=== PATIENT | male | born 1960 | race African-American/Black ===

== ENCOUNTER 2018-11-03 14:31 | Inpatient (IN) | payer OTHER ==
[2018-11-03 17:35] VITALS: BMI 25.9
--- NOTE | 2018-11-03 20:20 | HP ---
CIWA Score Nausea/Vomitin-No Nausea/No Vomiting Muscle Tremors: 1-None Visible, but [place] Anxiety: 0-No Anxiety, at Ease Agitation: 0-Normal Activity Paroxysmal Sweats: No Perspiration Orientation: 3-Disoriented Date>2 days Tacttile Disturbances: 0-None Auditory Disturbances: 0-None Visual Disturbances: 0-None Headache: 0-None Present CIWA-Ar Total Score: 4 - Admission Criteria OASAS Guidelines: Admission for Medically Managed Detox: Requires at least one of the followin. CIWA greater than 12 2. Seizures within the past 24 hours 3. Delirium tremens within the past 24 hours 4. Hallucinations within the past 24 hours 5. Acute intervention needed for co occurring medical disorder 6. Acute intervention needed for co occurring psychiatric disorder 7. Severe withdrawal that cannot be handled at a lower level of care (continued vomiting, continued diarrhea, abnormal vital signs) requiring intravenous medication and/or fluids 8. Patient presents the following: Acute intervention needed for co-occurring med or psych disorder Admission Criteria Met: Admission criteria met Admission ROS [facility] Chief Complaint: SEEKING CONTINUATION OF DETOX TXMENT AFTER HOSPITAL DC Allergies/Adverse Reactions: Allergies Allergy/AdvReac Type Severity Reaction Status Date / Time Penicillins Allergy Severe Swelling Verified 11/03/18 17:04 History of Present Illness: 57 Y.O. MALE WITH ALCOHOLISM HERE FOR DETOX. CLIENT IS A TRANSFER FROM [facility] AFTER BEING TX'ED THERE THE PAST 2 DAYS FOR ANEMIA AND ELEVATED BLOOD PRESSURE. WHILE THERE HE WAS ALSO GIVEN LIBRIUM FOR ALCOHOL DETOX. HE WAS SENT TO [facility] BY [facility] AFTER PRESENTING THERE FOR DETOX WITH ELEVATED B/P AND NEEDED MEDICAL CLEARANCE. PER THE CLIENT HE HAD STOPPED DRINKING A COUPLE OF DAYS AGO PRIOR TO PRESENTING FOR TXMENT AT [facility]. HE PRESENTLY HAS MINIMAL TO NO WITHDRAWAL SX'S. NAD HE HAS BEEN ON LIBRIUM. LDM TODAY. REPORTS HX/O SEIZURE X 1 EPISODE 2 MONTHS AGO. ELEVATED B/P BUT ASYMPTOMATIC.. WILL ADMIT CLIENT TO DETOX OVERNIGHT TO COMPLETE HIS DETOX TAPER PENDING TRANSFER TO A REHAB CURRENTLY THERE ARE NO REHAB BEDS. REPORTS LONGEST CLEAN TIME 3 YEARS. RELAPSED 2 YEARS AGO. HOMELESS, SSI- DENIES LEGALS PMHX- HTN, ANEMIA, HX/O PROSTATE CA IN REMISSION, DM, ASTHMA PSYCH- DEPRESSION Exam Limitations: No Limitations - Ebola screening Have you traveled outside of the country in the last 21 days: No (N) Have you had contact with anyone from an Ebola affected area: No Do you have a fever: No - Review of Systems Constitutional: Chills, Loss of Appetite, Changes in sleep EENT: reports: Other (EYEGLASSES MISSING TEETH W/ TOP UPPERS) Respiratory: reports: Shortness of Breath (HX/O ASTHMA) Cardiac: reports: No Symptoms Reported GI: reports: Diarrhea, Poor Appetite, Poor Fluid Intake : reports: No Symptoms Reported Musculoskeletal: reports: No Symptoms Reported Integumentary: reports: Other (MULTIPLE ABRASION TO BOTHS JACKSON FROM PREVIOUS FALLS ALL SCABBED OVER) Endocrine: reports: Other (DM) Hematology: reports: Anemia (S/P TRANSFUSION W/ 2UNITS OF PRBC) Psychiatric: reports: Anxious, Depressed (DENIES SI/HI) Other Systems: Reviewed and Negative Patient History - Patient Medical History Hx Anemia: Yes Hx Asthma: Yes Hx Chronic Obstructive Pulmonary Disease (COPD): No Hx Cancer: Yes (HX/O PROSTATE CA NOW IN REMISSION) Hx Cardiac Disorders: Yes (DYSRYTHMIA) Hx Congestive Heart Failure: No Hx Hypertension: Yes Hx Hypercholesterolemia: No Hx Pacemaker: No HX Cerebrovascular Accident: No Hx Seizures: Yes (LAST1 MONTH AGO) Hx Dementia: No Hx Diabetes: Yes Hx Gastrointestinal Disorders: No Hx Liver Disease: No Hx Genitourinary Disorders: No Hx Sexually Transmitted Disorders: No Hx Renal Disease (ESRD): No Hx Thyroid Disease: No Hx Human Immunodeficiency Virus (HIV): No Hx Hepatitis C: Yes (TX'ED) Hx Depression: Yes Hx Suicide Attempt: No Hx Bipolar Disorder: No Hx Schizophrenia: No Other Medical History: DENIES - Patient Surgical History Past Surgical History: Yes Other Surgical History: PROSTECTOMY, URINARY PUMP Anesthesia Reaction: No - PPD History Previous Implant?: Yes Documented Results: Negative w/o proof Implanted On Prior [facility] Admission?: No PPD to be Administered?: Yes - Smoking Cessation Smoking history: Current every day smoker Have you smoked in the past 12 months: Yes Aproximately how many cigarettes per day: 10 Cigars Per Day: 0 Hx Chewing Tobacco Use: No Initiated information on smoking cessation: Yes 'Breaking Loose' booklet given: 11/03/18 - Substance & Tx. History Hx Alcohol Use: Yes Hx Substance Use: Yes Substance Use Type: Alcohol, Marijuana Hx Substance Use Treatment: Yes ([facility]) - Substances abused Alcohol Substance route: Oral Frequency: Daily Amount used: 2 six packs, Age of first use: 16 Date of last use: 10/30/18 Marijuana/Hashish Substance route: Smoking Frequency: 3-6 times per week Amount used: 2 JOINTS Age of first use: 16 Date of last use: 10/02/18 Family Disease History - Family Disease History Family Disease History: Other: Father (ALCOHOLISM) Admission Physical Exam S - Vital Signs Vital Signs: Vital Signs - 24 hr 11/03/18 16:53 Temperature 98.9 F Pulse Rate 104 H Respiratory 18 Rate Blood Pressure 177/101 H - Physical General Appearance: Yes: No Apparent Distress HEENTM: Yes: EOMI, Normocephalic, Normal Voice, SEDRICK, Pharynx Normal, Other ( TOP DENTURES EYEGLASSES) Respiratory: Yes: Chest Non-Tender, Lungs Clear, Normal Breath Sounds, No Respiratory Distress, No Accessory Muscle Use Neck: Yes: No masses,lesions,Nodules, Supple, Trachea in good position Breast: Yes: Breast Exam Deferred Cardiology: Yes: Regular Rhythm, Regular Rate, S1, S2 Abdominal: Yes: Non Tender, Soft, Surgical Scar Genitourinary: Yes: Other (SCROTOL PUMP) Back: Yes: Normal Inspection Musculoskeletal: Yes: full range of Motion, Gait Steady Extremities: Yes: Normal Capillary Refill, Normal Range of Motion, Non-Tender Neurological: Yes: Alert, Motor Strength 5/5 Integumentary: Yes: Dry, Warm, Other (ABRASIONS TO BLE SCABBED OVER DUE TO PREVIOUS FALLS) Lymphatic: Yes: Within Normal Limits - Diagnostic (1) Alcohol dependence with uncomplicated withdrawal Current Visit: Yes Status: Acute (2) Cannabis abuse Current Visit: Yes Status: Chronic (3) HTN (hypertension) Current Visit: Yes Status: Chronic (4) Diabetes Current Visit: Yes Status: Chronic Qualifiers: Diabetes mellitus type: type 2 (5) Asthma Current Visit: Yes Status: Chronic Qualifiers: Asthma severity: mild Asthma persistence: intermittent Asthma complication type: unspecified Qualified Code(s): J45.20 - Mild intermittent asthma, uncomplicated (6) Anemia Current Visit: Yes Status: Acute Qualifiers: Anemia type: iron deficiency (7) Substance induced mood disorder Current Visit: Yes Status: Suspected Cleared for Admission [facility] - Detox or Rehab [facility] Level of Care: Medically Managed Detox Regimen/Protocol: Librium Claeared for Rehab Admission: No Breathalyzer - Breathalyzer Breathalyzer: 0 Urine Drug Screen - Test Device Lot number: [id number] Expiration date: 08/13/20 - Control Is test valid?: Yes - Results Drug screen NEGATIVE: No Urine drug screen results: THC-Marijuana, BZO-Benzodiazepines Inpatient Rehab Admission - Rehab Decision to Admit Inpatient rehab admission?: No
[2018-11-03] MEDS ORDERED: P-EPHED 60MG/TRIPROLIDI 2.5MG TABLET PO PRN (20:32)
[2018-11-03] MEDS ORDERED: NICOTINE POLACRILEX 2 MG GUM BUC PRN (20:32)
[2018-11-03] MEDS ORDERED: hydrOXYzine PAMOATE 25 MG CAPSULE (FP) PO PRN (20:32)
[2018-11-03] MEDS ORDERED: MELATONIN 5 MG TABLETS PO PRN (20:32)
[2018-11-03] MEDS ORDERED: BISMUTH SUBSALICYLATE 524 MG/30 ML UD PO PRN (20:32)
[2018-11-03] MEDS ORDERED: IBUPROFEN 400 MG TABLET (FP) PO PRN (20:32)
[2018-11-03] MEDS ORDERED: MAGNESIUM CITRATE 300 ML BOTTLE PO PRN (20:32)
[2018-11-03] MEDS ORDERED: DICYCLOMINE HCL 10 MG CAPSULE PO PRN (20:32)
[2018-11-03] MEDS ORDERED: METHOCARBAMOL 500 MG TABLET PO PRN (20:32)
[2018-11-03] MEDS ORDERED: ONDANSETRON *ODT* 4 MG TABLET SL PRN (20:32)
[2018-11-03] MEDS ORDERED: MENTHOL/PHENOL 1 EACH UD MM PRN (20:32)
[2018-11-03] MEDS ORDERED: MAGNESIUM HYDROX 2400MG/30ML ORAL SUSPENSION 30 ML CUP PO PRN (20:32)
[2018-11-03] MEDS ORDERED: MAG HYDROX/AL HYDROX/SIMETH 30 ML UNIT-DOSE CUP PO PRN (20:32)
[2018-11-03] MEDS ORDERED: ACETAMINOPHEN 325 MG TABLET (FP) PO PRN ×2 (20:32)
[2018-11-03] MEDS ORDERED: guaiFENesin 200 MG/10 ML 10 ML UNIT-DOSE CUPS PO PRN (20:32)
[2018-11-03] MEDS ORDERED: ALBUTEROL SO4 8 GM HFA INHALER IH PRN (20:45)
[2018-11-03] MEDS ORDERED: cloNIDine HCL 0.1 MG TABLET PO ONE (20:48)
[2018-11-03] MEDS ORDERED: chlordiazePOXIDE HCL 10 MG CAPSULE PO SCH (21:00)
[2018-11-03] MEDS ORDERED: THIAMINE HCL 100 MG TABLET (FP) PO SCH (22:00)
[2018-11-04] MEDS ORDERED: chlordiazePOXIDE HCL 10 MG CAPSULE PO ONE (05:00)
[2018-11-04] MEDS ORDERED: metFORMIN HCL 500 MG TABLET (FP) PO SCH (07:00)
[2018-11-04 09:39] VITALS: PULSE 72; TEMP 98.3
[2018-11-04 09:40] VITALS: BP 166/89
[2018-11-04] MEDS ORDERED: PRENATAL VITAMINS W/ FOLIC ACID TABLET (FP) PO SCH (10:00)
[2018-11-04] MEDS ORDERED: ASPIRIN COATED 81 MG TABLET.EC PO SCH (10:00)
[2018-11-04] MEDS ORDERED: ENALAPRIL MALEATE 10 MG TABLET (FP) PO SCH (10:00)
[2018-11-04] MEDS ORDERED: NICOTINE 14 MG/24 HOURS TOPICAL PATCH TD SCH (10:00)
[2018-11-04] MEDS ORDERED: amLODIPine BESYLATE 10 MG TABLET (FP) PO SCH (10:00)
[2018-11-04] MEDS ORDERED: FERROUS SO4 325 MG TABLET (FP) PO SCH (10:00)
--- NOTE | 2018-11-04 11:41 | EKG ---
Test Reason : Blood Pressure : / mmHG Vent. Rate : 076 BPM Atrial Rate : 076 BPM P-R Int : 132 ms QRS Dur : 138 ms QT Int : 460 ms P-R-T Axes : 073 -02 015 degrees QTc Int : 517 ms SINUS RHYTHM WITH PREMATURE SUPRAVENTRICULAR COMPLEXES AND WITH OCCASIONAL PREMATURE VENTRICULAR COMPLEXES POSSIBLE LEFT ATRIAL ENLARGEMENT RIGHT BUNDLE BRANCH BLOCK ABNORMAL ECG WHEN COMPARED WITH ECG OF 03-NOV-2018 21:25, PREMATURE VENTRICULAR COMPLEXES ARE NOW PRESENT Confirmed by JODY CAMPA MD ([id number]) on 11/04/2018 11:41:05 AM Referred By: JENN Confirmed By:JODY CAMPA MD
--- NOTE | 2018-11-04 11:41 | EKG ---
Test Reason : Blood Pressure : / mmHG Vent. Rate : 088 BPM Atrial Rate : 088 BPM P-R Int : 128 ms QRS Dur : 142 ms QT Int : 440 ms P-R-T Axes : 073 002 013 degrees QTc Int : 532 ms SINUS RHYTHM WITH PREMATURE ATRIAL COMPLEXES RIGHT BUNDLE BRANCH BLOCK ABNORMAL ECG NO PREVIOUS ECGS AVAILABLE Confirmed by LOKESH COLVIN, JODY ([id number]) on 11/04/2018 11:41:29 AM Referred By: MELITON SCHUMACHER Confirmed By:JODY CAMPA MD
--- NOTE | 2018-11-04 12:20 | DS ---
[facility] Detox Discharge Summary Admission Date: 11/03/18 Discharge Date: 11/04/18 - History Present History: Alcohol Dependence Additional Comments: 57 years old male admitted on 11/03/18 for alcohol withdrawal induced bp elevation received amlodipine enalapril systolic subsided to 160-150 from 180-160 received metformin bgm reduced from 200 to 100 with dietary restriction patient presents less tremor mild headache suitable for alcohol rehab today Pertinent Past History: hypertension diabetes II - Physical Exam Results Vital Signs: Vital Signs Temperature 98.3 F 11/04/18 09:38 Pulse Rate 72 11/04/18 09:38 Respiratory Rate 18 11/04/18 09:38 Blood Pressure 166/89 11/04/18 09:39 O2 Sat by Pulse Oximetry (%) Pertinent Admission Physical Exam Findings: alcohol withdrawal sx Laboratory Last Values POC Glucometer 199 UNITS (80-120) 11/04/18 06:09 lab pending - Treatment Hospital Course: Detox Protocol Followed, Detoxed Safely, Responded well, Discharged Condition Good, Rehab Referral Accepted Patient has Accepted a Rehab Referral to: [facility] - Medication Discharge Medications: Ambulatory Orders Albuterol Sulfate [Proventil HFA Inhaler -] 1 - 2 inh PO PRN 11/03/18 Amlodipine Besylate 5 mg PO DAILY 11/03/18 Amlodipine Besylate 10 mg PO DAILY 11/03/18 Aspirin [Aspirin EC] 81 mg PO DAILY 11/03/18 Diltiazem HCl [Diltiazem ER] 120 mg PO DAILY 11/03/18 Docusate Sodium 100 mg PO TID 11/03/18 Enalapril Maleate [Vasotec] 20 mg PO DAILY 11/03/18 Ferrous Sulfate 325 mg PO DAILY 11/03/18 Metformin HCl [Glucophage] 500 mg PO BID 11/03/18 Sitagliptin Phosphate [Januvia] 100 mg PO DAILY 11/03/18 - Diagnosis (1) Asthma Current Visit: Yes Status: Chronic Qualifiers: Asthma severity: mild Asthma persistence: intermittent Asthma complication type: unspecified Qualified Code(s): J45.20 - Mild intermittent asthma, uncomplicated (2) Diabetes Current Visit: Yes Status: Chronic Qualifiers: Diabetes mellitus type: type 2 Diabetes mellitus complication status: with other specified complication (3) HTN (hypertension) Current Visit: Yes Status: Chronic Qualifiers: Hypertension type: essential hypertension Qualified Code(s): I10 - Essential (primary) hypertension (4) Substance induced mood disorder Current Visit: Yes Status: Suspected - AMA Did Patient Leave Against Medical Advice: No CIWA Score - CIWA Score Nausea/Vomitin-No Nausea/No Vomiting Muscle Tremors: None Anxiety: 0-No Anxiety, at Ease Agitation: 0-Normal Activity Paroxysmal Sweats: No Perspiration Orientation: 1-Uncertain about Date (date of the week) Tacttile Disturbances: 0-None Auditory Disturbances: 0-None Visual Disturbances: 0-None Headache: 1-Very Mild CIWA-Ar Total Score: 2
[2018-11-04 12:43] LABS: ALBUMIN 3.4 g/dl (3.4-5.0); BILIRUBIN,TOTAL 0.7 mg/dL (0.2-1); BLOOD UREA NITROGEN 16.3 mg/dL (7-18); CALCIUM 8.8 mg/dL (8.5-10.1); CREATININE 1.3 mg/dL (0.55-1.3); POTASSIUM 3.5 mmol/L (3.5-5.1); TOT PROT 7.6 g/dl (6.4-8.2)
[2018-11-04 13:23] LABS: EPI CELLS 0.6 /HPF (0-5/HPF); HYALINE CASTS 0 /lpf (0-8); URINE APPEARANCE CLEAR; URINE BACTERIA 2.7 /hpf (NEGATIVE); URINE BILIRUBIN NEGATIVE (NEGATIVE); URINE COLOR YELLOW; URINE GLUCOSE (UA) TRACE (NEGATIVE); URINE KETONE NEGATIVE (NEGATIVE); URINE LEUK ESTERASE NEGATIVE (NEGATIVE); URINE NITRITE NEGATIVE (NEGATIVE); URINE PROTEIN 3+ (NEGATIVE); URINE UROBILINOGEN 0.2 mg/dL (0.2-1.0); URINE WBC 0 /hpf (0-5)
[2018-11-04 13:23] LABS: HEMATOCRIT 29.5 % (35.4-49); HEMOGLOBIN 9.1 GM/dL (11.7-16.9); MCH 21.4 pg (25.7-33.7); MEAN CELL VOLUME 69.1 fl (80-96); MEAN PLT VOLUME 9.1 fl (7.5-11.1); PLATELET COUNT 123 K/MM3 (134-434); RBC 4.27 M/mm3 (4.00-5.60); RDW 25.5 % (11.9-15.9); WHITE BLOOD COUNT 8.1 K/mm3 (4.0-10.0)
--- NOTE | 2018-11-04 14:09 | CONSULT ---
[facility] Psychiatric Consult - Data Date of interview: 11/04/18 Admission source: [facility] Identifying data: Patient no longer on 3N. Unable to complete psychiatric consultation.
[2018-11-04 14:25] LABS: URINE RBC 0 /hpf (0-4)
[2018-11-06] MEDS ORDERED: chlordiazePOXIDE HCL 10 MG CAPSULE PO PRN
== END 2018-11-04 12:40 | disposition other institution (70) | DRG 775 ==
LOC: YASAS 14:31 → Y3N 21:03
PROVIDERS: ADMIT Surgery; ATTEND Surgery
PROC: HZ2ZZZZ Detoxification Services for Substance Abuse Treatment (ICD-10-PCS; principal; 2018-11-03)
DX: F10.230 Alcohol dependence with withdrawal, uncomplicated (principal); F12.10 Cannabis abuse, uncomplicated; F17.210 Nicotine dependence, cigarettes, uncomplicated; F19.24 Other psychoactive substance dependence with psychoactive substance-induced mood disorder; I10 Essential (primary) hypertension; J45.20 Mild intermittent asthma, uncomplicated; E11.9 Type 2 diabetes mellitus without complications; D50.9 Iron deficiency anemia, unspecified; Z85.46 Personal history of malignant neoplasm of prostate; I49.9 Cardiac arrhythmia, unspecified; Z86.69 Personal history of other diseases of the nervous system and sense organs; Z88.0 Allergy status to penicillin; Z79.84 Long term (current) use of oral hypoglycemic drugs; Z59.0 Homelessness
CPT/HCPCS: 36415; 80053; 81003; 82962; 85027; 86593; 93005; 93010; J0735

== ENCOUNTER 2018-11-04 12:39 | Inpatient (IN) | payer OTHER ==
--- NOTE | 2018-11-04 12:28 | HP ---
AMNA COLVIN Rehab Assess/Revision - Admission History Admitted to Rehab from: [facility] Date of Admission to Rehab: 11/04/18 - Findings Detox History & Physical reviewed: Yes Concur with findings: Yes Comments/Additional Findings: transferred from detox to rehab admission as per protocol Inpatient Rehab Admission - Rehab Decision to Admit Inpatient rehab admission?: Yes - Initial Determination Are CD services needed?: Yes Free of communicable disease: Yes Not in need of hospitalization: Yes - Rehab Admission Criteria Previous failed treatment: Yes Poor recovery environment: Yes Comorbidities: Yes Lacks judgement: No Patient is meeting Inpatient Rehab admission criteria:: Yes
[~2018-11-04 12:39] MED LIST: ACETAMINOPHEN 325 MG TABLET (FP) PO PRN; LOPERAMIDE HCL 2 MG CAPSULE PO PRN; MAG HYDROX/AL HYDROX/SIMETH 30 ML UNIT-DOSE CUP PO PRN; MAGNESIUM CITRATE 300 ML BOTTLE PO PRN; MAGNESIUM HYDROX 2400MG/30ML ORAL SUSPENSION 30 ML CUP PO PRN; MENTHOL/PHENOL 1 EACH UD MM PRN; NICOTINE POLACRILEX 2 MG GUM BUC PRN; P-EPHED 60MG/TRIPROLIDI 2.5MG TABLET PO PRN
[2018-11-04] MEDS: metFORMIN HCL 500 MG TABLET (FP) PO SCH (17:14)
[2018-11-04] MEDS: THIAMINE HCL 100 MG TABLET (FP) PO SCH (21:27)
[2018-11-04] MEDS: MELATONIN 5 MG TABLETS PO PRN (21:27)
[2018-11-05] MEDS: metFORMIN HCL 500 MG TABLET (FP) PO SCH ×2 (07:10→16:57)
[2018-11-05] MEDS ORDERED: PATIENT'S OWN MEDICATION (NON-FORMULARY) (Diltiazem Hcl [Diltiazem 24hr Er] 120 MG) PO SCH (10:00)
[2018-11-05] MEDS: ENALAPRIL MALEATE 10 MG TABLET (FP) PO SCH (10:23)
[2018-11-05] MEDS: NICOTINE 14 MG/24 HOURS TOPICAL PATCH TD SCH (10:23)
[2018-11-05] MEDS: amLODIPine BESYLATE 10 MG TABLET (FP) PO SCH (10:23)
[2018-11-05] MEDS: ASPIRIN COATED 81 MG TABLET.EC PO SCH (10:23)
[2018-11-05] MEDS: FERROUS SO4 325 MG TABLET (FP) PO SCH (10:23)
[2018-11-05] MEDS: PRENATAL VITAMINS W/ FOLIC ACID TABLET (FP) PO SCH (10:23)
[2018-11-05] MEDS: THIAMINE HCL 100 MG TABLET (FP) PO SCH (21:19)
[2018-11-05] MEDS: MELATONIN 5 MG TABLETS PO PRN (21:20)
[2018-11-06] MEDS: metFORMIN HCL 500 MG TABLET (FP) PO SCH ×2 (07:01→17:57)
[2018-11-06] MEDS: FERROUS SO4 325 MG TABLET (FP) PO SCH (09:31)
[2018-11-06] MEDS: ASPIRIN COATED 81 MG TABLET.EC PO SCH (09:31)
[2018-11-06] MEDS: amLODIPine BESYLATE 10 MG TABLET (FP) PO SCH (09:31)
[2018-11-06] MEDS: ENALAPRIL MALEATE 10 MG TABLET (FP) PO SCH (09:31)
[2018-11-06] MEDS: PRENATAL VITAMINS W/ FOLIC ACID TABLET (FP) PO SCH (09:31)
[2018-11-06] MEDS: NICOTINE 14 MG/24 HOURS TOPICAL PATCH TD SCH (09:32)
[2018-11-06] MEDS: THIAMINE HCL 100 MG TABLET (FP) PO SCH (23:32)
[2018-11-07] MEDS: metFORMIN HCL 500 MG TABLET (FP) PO SCH ×2 (07:38→16:33)
[2018-11-07] MEDS: ENALAPRIL MALEATE 10 MG TABLET (FP) PO SCH (09:28)
[2018-11-07] MEDS: FERROUS SO4 325 MG TABLET (FP) PO SCH (09:28)
[2018-11-07] MEDS: ASPIRIN COATED 81 MG TABLET.EC PO SCH (09:28)
[2018-11-07] MEDS: NICOTINE 14 MG/24 HOURS TOPICAL PATCH TD SCH (09:28)
[2018-11-07] MEDS: PRENATAL VITAMINS W/ FOLIC ACID TABLET (FP) PO SCH (09:28)
[2018-11-07] MEDS: amLODIPine BESYLATE 10 MG TABLET (FP) PO SCH (09:28)
[2018-11-07] MEDS ORDERED: cloNIDine HCL 0.1 MG TABLET PO ONE (12:17)
--- NOTE | 2018-11-07 12:17 | PN ---
[facility] Progress Note Note: repeated elevated bp 2 h post meds 1x dose clonidine 0.1 ordered repeat pm vs
[2018-11-07] MEDS: guaiFENesin 200 MG/10 ML 10 ML UNIT-DOSE CUPS PO PRN (16:49)
[2018-11-07] MEDS: THIAMINE HCL 100 MG TABLET (FP) PO SCH (21:00)
[2018-11-07] MEDS: MELATONIN 5 MG TABLETS PO PRN (21:00)
[2018-11-08] MEDS: metFORMIN HCL 500 MG TABLET (FP) PO SCH ×2 (06:47→17:02)
[2018-11-08] MEDS ORDERED: ENALAPRIL MALEATE 10 MG TABLET (FP) PO SCH (10:00)
[2018-11-08] MEDS: amLODIPine BESYLATE 10 MG TABLET (FP) PO SCH (10:05)
[2018-11-08] MEDS: PRENATAL VITAMINS W/ FOLIC ACID TABLET (FP) PO SCH (10:05)
[2018-11-08] MEDS: FERROUS SO4 325 MG TABLET (FP) PO SCH (10:05)
[2018-11-08] MEDS: ASPIRIN COATED 81 MG TABLET.EC PO SCH (10:06)
[2018-11-08] MEDS: NICOTINE 14 MG/24 HOURS TOPICAL PATCH TD SCH (10:06)
[2018-11-08] MEDS ORDERED: cloNIDine HCL 0.1 MG TABLET PO ONE (10:10)
--- NOTE | 2018-11-08 11:57 | PN ---
[facility] Progress Note Note: Patient presents with elevated blood pressure despite being medicated with antihypertensive medication. Patient has hx of HTN, DM and Anemia. Patient states he is non-compliant with medication and MD follow up. Patient denies chest pain, headache, sob and dizziness at this time. Patient reports PCP as Dr. Marvin Jacobo at [facility] [phone] and Pharmacy as [facility] . Laboratory Tests 11/04/18 11/05/18 11/05/18 16:55 07:07 16:35 POC Glucometer 114 197 181 11/06/18 11/06/18 11/07/18 06:31 16:48 06:47 POC Glucometer 190 224 193 11/07/18 11/08/18 16:32 06:47 POC Glucometer 184 225 Vital Signs (72 hours) 11/06/18 11/06/18 11/06/18 00:30 03:30 07:05 Temperature 98.9 F Pulse Rate 102 H Respiratory 18 18 18 Rate Blood Pressure 180/91 H 11/06/18 11/06/18 11/06/18 10:38 16:37 16:38 Temperature 98.1 F Pulse Rate 95 H 98 H 98 H Respiratory 18 18 18 Rate Blood Pressure 188/109 H 194/100 H 185/104 H 11/07/18 11/07/18 11/07/18 00:30 03:30 07:44 Temperature 98.8 F Pulse Rate 121 H Respiratory 18 18 18 Rate Blood Pressure 154/88 11/07/18 11/07/18 11/07/18 10:00 12:00 15:51 Temperature Pulse Rate 107 H 106 H Respiratory 18 Rate Blood Pressure 172/97 H 179/98 H 159/74 11/07/18 11/08/18 11/08/18 16:30 00:30 03:30 Temperature Pulse Rate 100 H Respiratory 18 18 18 Rate Blood Pressure 150/74 11/08/18 07:10 Temperature 98.2 F Pulse Rate 105 H Respiratory 16 Rate Blood Pressure 166/100 PE: alert and oriented x 3 skin warm and dry +perrla, eoms intact bl neck supple, no jvd car s1s2 resp cta bl ext full rom, amb ad du UA reviewed +blood/protein in urine A/P: HTN-uncontrolled DM hematuria proteinuria Hx of anemia Office called. No answer, recording at time of call. Pharmacy called and states patient is restricted but unable to provide where he is restricted. Last electronic prescription sent 10/15/18 and listed as below. Patient did not picker medication. Symbicort 80-4.5 IH bid asa 81mg daily norvasc 10mg daily hctz 25mg daily januvia 100mg daily metformin 500mg bid losartan 100mg daily Will repeat UA and order urine culture clonidine 0.1mg once all medication listed above ordered and reconciled JULIANNA/NCS diet reinforced continue to monitor clinically
[2018-11-08] MEDS ORDERED: ALBUTEROL SO4 8 GM HFA INHALER IH PRN (11:58)
[2018-11-08] MEDS: guaiFENesin 200 MG/10 ML 10 ML UNIT-DOSE CUPS PO PRN ×2 (13:01→20:57)
[2018-11-08] MEDS: MELATONIN 5 MG TABLETS PO PRN (20:57)
[2018-11-08] MEDS: THIAMINE HCL 100 MG TABLET (FP) PO SCH (20:59)
[2018-11-08] MEDS: BUDESONIDE/FORMETEROL FUMARATE 80/4.5 mcg INHALER IH SCH (22:05)
[2018-11-09] MEDS: metFORMIN HCL 500 MG TABLET (FP) PO SCH ×2 (06:42→17:04)
[2018-11-09] MEDS: guaiFENesin 200 MG/10 ML 10 ML UNIT-DOSE CUPS PO PRN ×2 (06:43→15:19)
[2018-11-09] MEDS: LOSARTAN POTASSIUM 50 MG TABLET (FP) PO SCH (10:15)
[2018-11-09] MEDS: HYDROCHLOROTHIAZIDE 25 MG TABLET (FP) PO SCH (10:15)
[2018-11-09] MEDS: PRENATAL VITAMINS W/ FOLIC ACID TABLET (FP) PO SCH (10:15)
[2018-11-09] MEDS: FERROUS SO4 325 MG TABLET (FP) PO SCH (10:15)
[2018-11-09] MEDS: amLODIPine BESYLATE 10 MG TABLET (FP) PO SCH (10:15)
[2018-11-09] MEDS: ASPIRIN COATED 81 MG TABLET.EC PO SCH (10:15)
[2018-11-09] MEDS: NICOTINE 14 MG/24 HOURS TOPICAL PATCH TD SCH (10:16)
[2018-11-09] MEDS: BUDESONIDE/FORMETEROL FUMARATE 80/4.5 mcg INHALER IH SCH ×2 (10:18→22:03)
[2018-11-09 11:45] LABS: EPI CELLS 1.3 /HPF (0-5/HPF); HYALINE CASTS 1 /lpf (0-8); URINE APPEARANCE CLEAR; URINE BACTERIA 1.2 /hpf (NEGATIVE); URINE BILIRUBIN NEGATIVE (NEGATIVE); URINE COLOR YELLOW; URINE GLUCOSE (UA) NEGATIVE (NEGATIVE); URINE KETONE NEGATIVE (NEGATIVE); URINE LEUK ESTERASE NEGATIVE (NEGATIVE); URINE NITRITE NEGATIVE (NEGATIVE); URINE PROTEIN 3+ (NEGATIVE); URINE UROBILINOGEN 0.2 mg/dL (0.2-1.0); URINE WBC 1 /hpf (0-5)
[2018-11-09 15:21] LABS: URINE RBC 6.9 /hpf (0-4); YEAST NONE SEEN (NEGATIVE)
[2018-11-09] MEDS: cloNIDine HCL 0.1 MG TABLET PO PRN (15:38)
[2018-11-09] MEDS: THIAMINE HCL 100 MG TABLET (FP) PO SCH (21:30)
[2018-11-09] MEDS: MELATONIN 5 MG TABLETS PO PRN (21:30)
[2018-11-10] MEDS: metFORMIN HCL 500 MG TABLET (FP) PO SCH ×2 (06:57→16:29)
[2018-11-10] MEDS: HYDROCHLOROTHIAZIDE 25 MG TABLET (FP) PO SCH (09:08)
[2018-11-10] MEDS: ASPIRIN COATED 81 MG TABLET.EC PO SCH (09:08)
[2018-11-10] MEDS: LOSARTAN POTASSIUM 50 MG TABLET (FP) PO SCH (09:08)
[2018-11-10] MEDS: PRENATAL VITAMINS W/ FOLIC ACID TABLET (FP) PO SCH (09:08)
[2018-11-10] MEDS: amLODIPine BESYLATE 10 MG TABLET (FP) PO SCH (09:08)
[2018-11-10] MEDS: FERROUS SO4 325 MG TABLET (FP) PO SCH (09:08)
[2018-11-10] MEDS: BUDESONIDE/FORMETEROL FUMARATE 80/4.5 mcg INHALER IH SCH ×2 (09:09→21:19)
[2018-11-10] MEDS: NICOTINE 14 MG/24 HOURS TOPICAL PATCH TD SCH (09:10)
[2018-11-10] MEDS: cloNIDine HCL 0.1 MG TABLET PO PRN ×2 (11:06→21:19)
[2018-11-10] MEDS: guaiFENesin 200 MG/10 ML 10 ML UNIT-DOSE CUPS PO PRN (13:26)
[2018-11-10] MEDS: MELATONIN 5 MG TABLETS PO PRN (21:19)
[2018-11-10] MEDS: THIAMINE HCL 100 MG TABLET (FP) PO SCH (21:19)
[2018-11-11] MEDS: metFORMIN HCL 500 MG TABLET (FP) PO SCH ×2 (06:28→16:44)
[2018-11-11] MEDS: guaiFENesin 200 MG/10 ML 10 ML UNIT-DOSE CUPS PO PRN (06:29)
[2018-11-11 07:15] VITALS: BMI 25.7
[2018-11-11] MEDS: LOSARTAN POTASSIUM 50 MG TABLET (FP) PO SCH (10:13)
[2018-11-11] MEDS: ASPIRIN COATED 81 MG TABLET.EC PO SCH (10:14)
[2018-11-11] MEDS: FERROUS SO4 325 MG TABLET (FP) PO SCH (10:14)
[2018-11-11] MEDS: HYDROCHLOROTHIAZIDE 25 MG TABLET (FP) PO SCH (10:15)
[2018-11-11] MEDS: amLODIPine BESYLATE 10 MG TABLET (FP) PO SCH (10:15)
[2018-11-11] MEDS: NICOTINE 14 MG/24 HOURS TOPICAL PATCH TD SCH (10:15)
[2018-11-11] MEDS: PRENATAL VITAMINS W/ FOLIC ACID TABLET (FP) PO SCH (10:15)
[2018-11-11] MEDS: BUDESONIDE/FORMETEROL FUMARATE 80/4.5 mcg INHALER IH SCH ×2 (10:16→21:22)
[2018-11-11] MEDS: cloNIDine HCL 0.1 MG TABLET PO PRN ×2 (12:59→21:22)
[2018-11-11] MEDS: MELATONIN 5 MG TABLETS PO PRN (21:22)
[2018-11-11] MEDS: THIAMINE HCL 100 MG TABLET (FP) PO SCH (21:22)
[2018-11-12] MEDS: metFORMIN HCL 500 MG TABLET (FP) PO SCH ×2 (06:35→16:40)
[2018-11-12] MEDS: guaiFENesin 200 MG/10 ML 10 ML UNIT-DOSE CUPS PO PRN ×2 (06:36→21:21)
[2018-11-12] MEDS: LOSARTAN POTASSIUM 50 MG TABLET (FP) PO SCH (10:27)
[2018-11-12] MEDS: HYDROCHLOROTHIAZIDE 25 MG TABLET (FP) PO SCH (10:27)
[2018-11-12] MEDS: NICOTINE 14 MG/24 HOURS TOPICAL PATCH TD SCH (10:27)
[2018-11-12] MEDS: ASPIRIN COATED 81 MG TABLET.EC PO SCH (10:27)
[2018-11-12] MEDS: PRENATAL VITAMINS W/ FOLIC ACID TABLET (FP) PO SCH (10:27)
[2018-11-12] MEDS: FERROUS SO4 325 MG TABLET (FP) PO SCH (10:27)
[2018-11-12] MEDS: amLODIPine BESYLATE 10 MG TABLET (FP) PO SCH (10:27)
[2018-11-12] MEDS: BUDESONIDE/FORMETEROL FUMARATE 80/4.5 mcg INHALER IH SCH ×2 (10:28→21:20)
--- NOTE | 2018-11-12 13:42 | PN ---
[facility] Progress Note Note: Pt c/o bilateral lumps on both elbows for a couple of weeks. Denies pain and states has not seen doctor outside here for the observation. Upper extremity Exam: Both outer elbows with soft, movable, and painless lumps. No redness. skin intact. Vital Signs - 24 hr 11/11/18 11/11/18 11/12/18 15:53 22:36 00:30 Temperature Pulse Rate 99 H 106 H Respiratory 18 18 Rate Blood Pressure 157/96 163/87 11/12/18 11/12/18 03:30 07:01 Temperature 98.2 F Pulse Rate 103 H Respiratory 18 18 Rate Blood Pressure 149/88 Laboratory Tests 11/04/18 11/05/18 11/05/18 16:55 07:07 16:35 POC Glucometer 114 197 181 Urine Color Urine Appearance Urine pH Ur Specific [place] Urine Protein Urine Glucose (UA) Urine Ketones Urine Blood Urine Nitrite Urine Bilirubin Urine Urobilinogen Ur Leukocyte Esterase Urine WBC (Auto) Urine RBC (Auto) Urine Casts (Auto) U Epithel Cells (Auto) Urine Bacteria (Auto) Urine Yeast (Auto) 11/06/18 11/06/18 11/07/18 06:31 16:48 06:47 POC Glucometer 190 224 193 Urine Color Urine Appearance Urine pH Ur Specific [place] Urine Protein Urine Glucose (UA) Urine Ketones Urine Blood Urine Nitrite Urine Bilirubin Urine Urobilinogen Ur Leukocyte Esterase Urine WBC (Auto) Urine RBC (Auto) Urine Casts (Auto) U Epithel Cells (Auto) Urine Bacteria (Auto) Urine Yeast (Auto) 11/07/18 11/08/18 11/08/18 16:32 06:47 17:02 POC Glucometer 184 225 200 Urine Color Urine Appearance Urine pH Ur Specific [place] Urine Protein Urine Glucose (UA) Urine Ketones Urine Blood Urine Nitrite Urine Bilirubin Urine Urobilinogen Ur Leukocyte Esterase Urine WBC (Auto) Urine RBC (Auto) Urine Casts (Auto) U Epithel Cells (Auto) Urine Bacteria (Auto) Urine Yeast (Auto) 11/09/18 11/09/18 11/09/18 06:41 08:03 17:03 POC Glucometer 171 297 Urine Color Yellow Urine Appearance Clear Urine pH 7.0 Ur Specific [place] 1.013 Urine Protein 3+ H Urine Glucose (UA) Negative Urine Ketones Negative Urine Blood 2+ H Urine Nitrite Negative Urine Bilirubin Negative Urine Urobilinogen 0.2 Ur Leukocyte Esterase Negative Urine WBC (Auto) 1 Urine RBC (Auto) 6.9 Urine Casts (Auto) 1 U Epithel Cells (Auto) 1.3 Urine Bacteria (Auto) 1.2 Urine Yeast (Auto) None seen 11/10/18 11/10/18 11/11/18 06:56 16:29 06:25 POC Glucometer 200 200 148 Urine Color Urine Appearance Urine pH Ur Specific [place] Urine Protein Urine Glucose (UA) Urine Ketones Urine Blood Urine Nitrite Urine Bilirubin Urine Urobilinogen Ur Leukocyte Esterase Urine WBC (Auto) Urine RBC (Auto) Urine Casts (Auto) U Epithel Cells (Auto) Urine Bacteria (Auto) Urine Yeast (Auto) 11/11/18 11/12/18 16:43 06:34 POC Glucometer 182 160 Urine Color Urine Appearance Urine pH Ur Specific [place] Urine Protein Urine Glucose (UA) Urine Ketones Urine Blood Urine Nitrite Urine Bilirubin Urine Urobilinogen Ur Leukocyte Esterase Urine WBC (Auto) Urine RBC (Auto) Urine Casts (Auto) U Epithel Cells (Auto) Urine Bacteria (Auto) Urine Yeast (Auto) A/P [place] D/w pt to observe for any pain or unusual symptoms Informed pt can follow up with primary care/surgeon to evaluate and treat if needed after rehab.
[2018-11-12] MEDS: MELATONIN 5 MG TABLETS PO PRN (21:19)
[2018-11-12] MEDS: THIAMINE HCL 100 MG TABLET (FP) PO SCH (21:19)
[2018-11-12] MEDS: cloNIDine HCL 0.1 MG TABLET PO PRN (21:19)
[2018-11-13] MEDS: metFORMIN HCL 500 MG TABLET (FP) PO SCH ×2 (06:26→17:02)
[2018-11-13] MEDS: BUDESONIDE/FORMETEROL FUMARATE 80/4.5 mcg INHALER IH SCH ×2 (10:02→21:18)
[2018-11-13] MEDS: PRENATAL VITAMINS W/ FOLIC ACID TABLET (FP) PO SCH (10:02)
[2018-11-13] MEDS: ASPIRIN COATED 81 MG TABLET.EC PO SCH (10:02)
[2018-11-13] MEDS: NICOTINE 14 MG/24 HOURS TOPICAL PATCH TD SCH (10:02)
[2018-11-13] MEDS: HYDROCHLOROTHIAZIDE 25 MG TABLET (FP) PO SCH (10:03)
[2018-11-13] MEDS: FERROUS SO4 325 MG TABLET (FP) PO SCH (10:03)
[2018-11-13] MEDS: LOSARTAN POTASSIUM 50 MG TABLET (FP) PO SCH (10:03)
[2018-11-13] MEDS: amLODIPine BESYLATE 10 MG TABLET (FP) PO SCH (10:03)
[2018-11-13] MEDS: MELATONIN 5 MG TABLETS PO PRN (21:18)
[2018-11-13] MEDS: THIAMINE HCL 100 MG TABLET (FP) PO SCH (21:18)
[2018-11-14] MEDS: metFORMIN HCL 500 MG TABLET (FP) PO SCH ×2 (06:18→16:35)
[2018-11-14] MEDS: HYDROCHLOROTHIAZIDE 25 MG TABLET (FP) PO SCH (10:12)
[2018-11-14] MEDS: LOSARTAN POTASSIUM 50 MG TABLET (FP) PO SCH (10:12)
[2018-11-14] MEDS: PRENATAL VITAMINS W/ FOLIC ACID TABLET (FP) PO SCH (10:12)
[2018-11-14] MEDS: BUDESONIDE/FORMETEROL FUMARATE 80/4.5 mcg INHALER IH SCH ×2 (10:12→21:26)
[2018-11-14] MEDS: amLODIPine BESYLATE 10 MG TABLET (FP) PO SCH (10:12)
[2018-11-14] MEDS: FERROUS SO4 325 MG TABLET (FP) PO SCH (10:12)
[2018-11-14] MEDS: ASPIRIN COATED 81 MG TABLET.EC PO SCH (10:13)
[2018-11-14] MEDS: NICOTINE 14 MG/24 HOURS TOPICAL PATCH TD SCH (10:13)
[2018-11-14] MEDS: guaiFENesin 200 MG/10 ML 10 ML UNIT-DOSE CUPS PO PRN (10:14)
[2018-11-14] MEDS: MELATONIN 5 MG TABLETS PO PRN (21:26)
[2018-11-14] MEDS: THIAMINE HCL 100 MG TABLET (FP) PO SCH (21:26)
[2018-11-15] MEDS: metFORMIN HCL 500 MG TABLET (FP) PO SCH ×2 (06:29→16:41)
[2018-11-15] MEDS: ASPIRIN COATED 81 MG TABLET.EC PO SCH (10:29)
[2018-11-15] MEDS: HYDROCHLOROTHIAZIDE 25 MG TABLET (FP) PO SCH (10:29)
[2018-11-15] MEDS: PRENATAL VITAMINS W/ FOLIC ACID TABLET (FP) PO SCH (10:29)
[2018-11-15] MEDS: amLODIPine BESYLATE 10 MG TABLET (FP) PO SCH (10:30)
[2018-11-15] MEDS: LOSARTAN POTASSIUM 50 MG TABLET (FP) PO SCH (10:30)
[2018-11-15] MEDS: FERROUS SO4 325 MG TABLET (FP) PO SCH (10:30)
[2018-11-15] MEDS: NICOTINE 14 MG/24 HOURS TOPICAL PATCH TD SCH (10:31)
[2018-11-15] MEDS: BUDESONIDE/FORMETEROL FUMARATE 80/4.5 mcg INHALER IH SCH ×2 (10:31→21:29)
[2018-11-15] MEDS: cloNIDine HCL 0.1 MG TABLET PO PRN ×2 (12:40→21:27)
[2018-11-15] MEDS: MELATONIN 5 MG TABLETS PO PRN (21:27)
[2018-11-15] MEDS: THIAMINE HCL 100 MG TABLET (FP) PO SCH (21:27)
[2018-11-15] MEDS: guaiFENesin 200 MG/10 ML 10 ML UNIT-DOSE CUPS PO PRN (21:28)
[2018-11-16] MEDS: metFORMIN HCL 500 MG TABLET (FP) PO SCH ×2 (06:20→16:42)
[2018-11-16] MEDS: FERROUS SO4 325 MG TABLET (FP) PO SCH (10:28)
[2018-11-16] MEDS: PRENATAL VITAMINS W/ FOLIC ACID TABLET (FP) PO SCH (10:28)
[2018-11-16] MEDS: LOSARTAN POTASSIUM 50 MG TABLET (FP) PO SCH (10:29)
[2018-11-16] MEDS: ASPIRIN COATED 81 MG TABLET.EC PO SCH (10:29)
[2018-11-16] MEDS: HYDROCHLOROTHIAZIDE 25 MG TABLET (FP) PO SCH (10:29)
[2018-11-16] MEDS: BUDESONIDE/FORMETEROL FUMARATE 80/4.5 mcg INHALER IH SCH ×2 (10:29→21:25)
[2018-11-16] MEDS: amLODIPine BESYLATE 10 MG TABLET (FP) PO SCH (10:29)
[2018-11-16] MEDS: NICOTINE 14 MG/24 HOURS TOPICAL PATCH TD SCH (10:31)
[2018-11-16] MEDS: MELATONIN 5 MG TABLETS PO PRN (21:24)
[2018-11-16] MEDS: cloNIDine HCL 0.1 MG TABLET PO PRN (21:24)
[2018-11-16] MEDS: THIAMINE HCL 100 MG TABLET (FP) PO SCH (21:25)
[2018-11-17] MEDS: metFORMIN HCL 500 MG TABLET (FP) PO SCH ×2 (06:29→16:52)
[2018-11-17] MEDS: ASPIRIN COATED 81 MG TABLET.EC PO SCH (10:44)
[2018-11-17] MEDS: HYDROCHLOROTHIAZIDE 25 MG TABLET (FP) PO SCH (10:44)
[2018-11-17] MEDS: amLODIPine BESYLATE 10 MG TABLET (FP) PO SCH (10:44)
[2018-11-17] MEDS: LOSARTAN POTASSIUM 50 MG TABLET (FP) PO SCH (10:44)
[2018-11-17] MEDS: PRENATAL VITAMINS W/ FOLIC ACID TABLET (FP) PO SCH (10:44)
[2018-11-17] MEDS: FERROUS SO4 325 MG TABLET (FP) PO SCH (10:44)
[2018-11-17] MEDS: BUDESONIDE/FORMETEROL FUMARATE 80/4.5 mcg INHALER IH SCH ×2 (10:45→21:31)
[2018-11-17] MEDS: NICOTINE 14 MG/24 HOURS TOPICAL PATCH TD SCH (10:45)
--- NOTE | 2018-11-17 15:23 | DS ---
[facility] Rehab Discharge Summary - [facility] Rehab Discharge Summary Admission Date: 11/04/18 Discharge Date: 11/17/18 - History Present History: Alcohol dependence, Cannabis dependence Additional Comments: Pt is a 57 y/o male admitted to rehab for substance use disorder, completed and discharging on 11/18/18 in stable condition. Pt has been referred to follow up with aftercare after discharge. Met and discussed with patient the need to follow up with primary care for medical management. Pt reports he has a primary care provider with [facility], [place] for management of multiple cormobid conditions as scheduled. Pt reports he has own meds and will follow up with his providers for refills. Pertinent Past History: Anemia Asthma HTN DM - Discharge Physical Exam Vital Signs: Vital Signs Temperature 98.6 F 11/17/18 06:40 Pulse Rate 114 H 11/17/18 10:00 Respiratory Rate 18 11/17/18 06:40 Blood Pressure 150/95 11/17/18 10:00 O2 Sat by Pulse Oximetry (%) Alert O X 3,nad,denies s/h/i Cardiac:s1 s2,rrr Lungs:cta,claudia. Abdomen:soft,+bs,nt,nd Extremities/Skin:Full ROM,no edema,cyanosis;skin intact. Pertinent Admission Physical Exam Findings: Laboratory Tests 11/04/18 11/05/18 11/05/18 16:55 07:07 16:35 POC Glucometer 114 197 181 Urine Color Urine Appearance Urine pH Ur Specific [place] Urine Protein Urine Glucose (UA) Urine Ketones Urine Blood Urine Nitrite Urine Bilirubin Urine Urobilinogen Ur Leukocyte Esterase Urine WBC (Auto) Urine RBC (Auto) Urine Casts (Auto) U Epithel Cells (Auto) Urine Bacteria (Auto) Urine Yeast (Auto) 11/06/18 11/06/18 11/07/18 06:31 16:48 06:47 POC Glucometer 190 224 193 Urine Color Urine Appearance Urine pH Ur Specific [place] Urine Protein Urine Glucose (UA) Urine Ketones Urine Blood Urine Nitrite Urine Bilirubin Urine Urobilinogen Ur Leukocyte Esterase Urine WBC (Auto) Urine RBC (Auto) Urine Casts (Auto) U Epithel Cells (Auto) Urine Bacteria (Auto) Urine Yeast (Auto) 11/07/18 11/08/18 11/08/18 16:32 06:47 17:02 POC Glucometer 184 225 200 Urine Color Urine Appearance Urine pH Ur Specific [place] Urine Protein Urine Glucose (UA) Urine Ketones Urine Blood Urine Nitrite Urine Bilirubin Urine Urobilinogen Ur Leukocyte Esterase Urine WBC (Auto) Urine RBC (Auto) Urine Casts (Auto) U Epithel Cells (Auto) Urine Bacteria (Auto) Urine Yeast (Auto) 11/09/18 11/09/18 11/09/18 06:41 08:03 17:03 POC Glucometer 171 297 Urine Color Yellow Urine Appearance Clear Urine pH 7.0 Ur Specific [place] 1.013 Urine Protein 3+ H Urine Glucose (UA) Negative Urine Ketones Negative Urine Blood 2+ H Urine Nitrite Negative Urine Bilirubin Negative Urine Urobilinogen 0.2 Ur Leukocyte Esterase Negative Urine WBC (Auto) 1 Urine RBC (Auto) 6.9 Urine Casts (Auto) 1 U Epithel Cells (Auto) 1.3 Urine Bacteria (Auto) 1.2 Urine Yeast (Auto) None seen 11/10/18 11/10/18 11/11/18 06:56 16:29 06:25 POC Glucometer 200 200 148 Urine Color Urine Appearance Urine pH Ur Specific [place] Urine Protein Urine Glucose (UA) Urine Ketones Urine Blood Urine Nitrite Urine Bilirubin Urine Urobilinogen Ur Leukocyte Esterase Urine WBC (Auto) Urine RBC (Auto) Urine Casts (Auto) U Epithel Cells (Auto) Urine Bacteria (Auto) Urine Yeast (Auto) 11/11/18 11/12/18 11/12/18 16:43 06:34 16:39 POC Glucometer 182 160 135 Urine Color Urine Appearance Urine pH Ur Specific [place] Urine Protein Urine Glucose (UA) Urine Ketones Urine Blood Urine Nitrite Urine Bilirubin Urine Urobilinogen Ur Leukocyte Esterase Urine WBC (Auto) Urine RBC (Auto) Urine Casts (Auto) U Epithel Cells (Auto) Urine Bacteria (Auto) Urine Yeast (Auto) 11/13/18 11/13/18 11/14/18 06:26 17:00 06:17 POC Glucometer 141 184 159 Urine Color Urine Appearance Urine pH Ur Specific [place] Urine Protein Urine Glucose (UA) Urine Ketones Urine Blood Urine Nitrite Urine Bilirubin Urine Urobilinogen Ur Leukocyte Esterase Urine WBC (Auto) Urine RBC (Auto) Urine Casts (Auto) U Epithel Cells (Auto) Urine Bacteria (Auto) Urine Yeast (Auto) 11/14/18 11/15/18 11/15/18 16:33 06:27 16:40 POC Glucometer 136 147 148 Urine Color Urine Appearance Urine pH Ur Specific [place] Urine Protein Urine Glucose (UA) Urine Ketones Urine Blood Urine Nitrite Urine Bilirubin Urine Urobilinogen Ur Leukocyte Esterase Urine WBC (Auto) Urine RBC (Auto) Urine Casts (Auto) U Epithel Cells (Auto) Urine Bacteria (Auto) Urine Yeast (Auto) 11/16/18 11/16/18 11/17/18 06:17 16:40 06:28 POC Glucometer 143 148 146 Urine Color Urine Appearance Urine pH Ur Specific [place] Urine Protein Urine Glucose (UA) Urine Ketones Urine Blood Urine Nitrite Urine Bilirubin Urine Urobilinogen Ur Leukocyte Esterase Urine WBC (Auto) Urine RBC (Auto) Urine Casts (Auto) U Epithel Cells (Auto) Urine Bacteria (Auto) Urine Yeast (Auto) 11/17/18 16:51 POC Glucometer 157 Urine Color Urine Appearance Urine pH Ur Specific [place] Urine Protein Urine Glucose (UA) Urine Ketones Urine Blood Urine Nitrite Urine Bilirubin Urine Urobilinogen Ur Leukocyte Esterase Urine WBC (Auto) Urine RBC (Auto) Urine Casts (Auto) U Epithel Cells (Auto) Urine Bacteria (Auto) Urine Yeast (Auto) - Treatment Discharge Condition: Discharge condition good Hospital Course: Rehabilitated safely and tolerated well. accepted aftercare referral - Medication Discharge Medications: Ambulatory Orders Albuterol Sulfate [Proventil HFA Inhaler -] 1 - 2 inh PO PRN 11/03/18 Amlodipine Besylate 5 mg PO DAILY 11/03/18 Amlodipine Besylate 10 mg PO DAILY 11/03/18 Aspirin [Aspirin EC] 81 mg PO DAILY 11/03/18 Diltiazem HCl [Diltiazem ER] 120 mg PO DAILY 11/03/18 Docusate Sodium 100 mg PO TID 11/03/18 Enalapril Maleate [Vasotec] 20 mg PO DAILY 11/03/18 Metformin HCl [Glucophage] 500 mg PO BID 11/03/18 Sitagliptin Phosphate [Januvia] 100 mg PO DAILY 11/03/18 Budesonide/Formeterol Fumarate [SYMBICORT 80/4.5mcg -] 1 inh PO BID 11/08/18 Hydrochlorothiazide 25 mg PO DAILY 11/08/18 Losartan Potassium 100 mg PO DAILY 11/08/18 Ferrous Sulfate 325 mg PO DAILY #30 tablet 11/17/18 - Medication-Assisted Treatment (MAT) Medication-Assisted Treatment (MAT): No - Discharge Instructions Diet, activity, other medical instructions: Diet:Low salt, No concentrated sweets diet Activity: OOB,ad du Other medical instructions:Follow up with your primary care provider Dr. Marvin Jacobo at [facility] [place] on [address] [place], [place] for medical management.[phone] Follow up with aftercare at [facility] at [address], [place] , - Follow-up Referral Minutes to complete discharge: 35 - AMA Did Patient Leave Against Medical Advice: No
[2018-11-17] MEDS: THIAMINE HCL 100 MG TABLET (FP) PO SCH (21:30)
[2018-11-17] MEDS: cloNIDine HCL 0.1 MG TABLET PO PRN (21:30)
[2018-11-17] MEDS: MELATONIN 5 MG TABLETS PO PRN (21:30)
[2018-11-18] MEDS: metFORMIN HCL 500 MG TABLET (FP) PO SCH (06:26)
[2018-11-18 07:15] VITALS: BP 156/95; PULSE 105; TEMP 98.2
[2018-11-18] MEDS: amLODIPine BESYLATE 10 MG TABLET (FP) PO SCH (09:50)
[2018-11-18] MEDS: FERROUS SO4 325 MG TABLET (FP) PO SCH (09:50)
[2018-11-18] MEDS: LOSARTAN POTASSIUM 50 MG TABLET (FP) PO SCH (09:50)
[2018-11-18] MEDS: HYDROCHLOROTHIAZIDE 25 MG TABLET (FP) PO SCH (09:50)
[2018-11-18] MEDS: ASPIRIN COATED 81 MG TABLET.EC PO SCH (09:50)
[2018-11-18] MEDS: PRENATAL VITAMINS W/ FOLIC ACID TABLET (FP) PO SCH (09:50)
[2018-11-18] MEDS: BUDESONIDE/FORMETEROL FUMARATE 80/4.5 mcg INHALER IH SCH (09:52)
[2018-11-18] MEDS: NICOTINE 14 MG/24 HOURS TOPICAL PATCH TD SCH (09:52)
== END 2018-11-18 10:05 | disposition home or self-care (01) | DRG 772 ==
LOC: YASAS 12:39 → Y5N 12:40
PROVIDERS: ADMIT Neuromusculoskeletal Medicine & OMM; ATTEND Neuromusculoskeletal Medicine & OMM
PROC: HZ42ZZZ Group Counseling for Substance Abuse Treatment, Cognitive-Behavioral (ICD-10-PCS; principal; 2018-11-04)
DX: F10.20 Alcohol dependence, uncomplicated (principal); F12.20 Cannabis dependence, uncomplicated; F31.9 Bipolar disorder, unspecified; I10 Essential (primary) hypertension; E11.9 Type 2 diabetes mellitus without complications; Z79.84 Long term (current) use of oral hypoglycemic drugs; J45.909 Unspecified asthma, uncomplicated; Z86.2 Personal history of diseases of the blood and blood-forming organs and certain disorders involving the immune mechanism; Z59.0 Homelessness
CPT/HCPCS: 81003; 82962; J0735